=== PATIENT | female | born 1975 | race Caucasian/White ===

== ENCOUNTER 2020-04-01 11:29 | Emergency (ER) | payer MEDICAID ==
--- NOTE | 2020-04-01 12:38 | ER Document Report ---
ED Medical Screen (RME) - General Stated Complaint: ABDOMINAL PAIN Time Seen by Provider: 04/01/20 12:33 Primary Care Provider: PLACIDO CONTRERAS DO [Primary Care Provider] - Follow up as needed TRAVEL OUTSIDE OF THE [place] IN LAST 30 DAYS: No - HPI Notes: 04/01/20 12:38 44 yr old female presents to the emergency room tonight with right upper abdominal pain with nausea and vomiting after she ate greasy food at a burger restaurant a day ago. No [id number] medications have been tried, she does report that her anxiety has become progressively worse with having this upper abdominal pain. Reports last menstrual cycle was 03/04/2020. Last bowel movement was today, denies any vaginal bleeding or vaginal discharge. Patient has not had any abdominal surgeries I have greeted and performed a rapid initial assessment of this patient. A comprehensive ED assessment and evaluation of the patient, analysis of test results and completion of the medical decision making process will be conducted by additional ED providers. PHYSICAL EXAMINATION: GENERAL: Well-appearing, well-nourished and in no acute distress. CV: s1, s2 regular LUNGS: No respiratory distress abd: RUQ, epigastric abd pain - Related Data Allergies/Adverse Reactions: ondansetron [From Zofran (as hydrochloride)] Allergy (Verified 04/01/20 12:20) promethazine HCl [From Phenergan] Allergy (Verified 04/01/20 12:20) Past Medical History Neurological Medical History: Reports: Hx Migraine Musculoskeltal Medical History: Reports Hx Arthritis, Reports Hx Musculoskeletal Trauma Psychiatric Medical History: Reports: Hx Anxiety, Hx Attention Deficit Hyperactivity Disorder, Hx Depression, Hx Post Traumatic Stress Disorder Past Surgical History: Reports: Hx Myringotomy, Hx Tubal Ligation - Immunizations Immunizations up to date: Yes Hx Diphtheria, Pertussis, Tetanus Vaccination: Yes Physical Exam - Vital signs Vitals: Temp Pulse Resp BP Pulse Ox 97.1 F 106 H 20 140/92 H 100 04/01/20 11:56 04/01/20 11:56 04/01/20 11:56 04/01/20 11:56 04/01/20 11:56 Course - Vital Signs Vital signs: Temp Pulse Resp BP Pulse Ox 97.1 F 106 H 20 140/92 H 100 04/01/20 11:56 04/01/20 11:56 04/01/20 11:56 04/01/20 11:56 04/01/20 11:56 Doctor's Discharge - Discharge Referrals: PLACIDO CONTRERAS DO [Primary Care Provider] - Follow up as needed
[2020-04-01 13:54] LABS: ABSOLUTE LYMPHOCYTES (AUTO) 1.7 10^3/uL (0.5-4.7); ABSOLUTE NEUT (AUTO) 4.9 10^3/uL (1.7-8.2); BASOPHILS % (AUTO) 0.7 % (0-2); EOSINOPHILS % (AUTO) 0.3 % (0-6); HEMATOCRIT 43.6 % (36.0-47.0); HEMOGLOBIN 14.7 g/dL (12.0-15.5); LYMPHOCYTES % (AUTO) 21.8 % (13-45); MEAN CORPUSCULAR HEMOGLOBIN 27.5 pg (27.0-33.4); MEAN CORPUSCULAR HGB CONC 33.7 g/dL (32.0-36.0); MEAN CORPUSCULAR VOLUME 82 fl (80-97); MONOCYTES % (AUTO) 13.3 % (3-13); PLATELET COUNT 535 10^3/uL (150-450); RED BLOOD COUNT 5.34 10^6/uL (3.72-5.28); RED CELL DISTRIBUTION WIDTH 15.2 % (11.5-14.0); SEGMENTED NEUTROPHILS % (AUTO) 63.9 % (42-78); TOTAL CELLS COUNTED % (AUTO) 100 %; WHITE BLOOD COUNT 7.6 10^3/uL (4.0-10.5)
[2020-04-01 14:03] LABS: AMORPHOUS SEDIMENT,URINE TRACE /HPF; APPEARANCE,URINE CLOUDY; BILIRUBIN,URINE NEGATIVE (NEGATIVE); GLUCOSE, URINE NEGATIVE (NEGATIVE); KETONES,URINE NEGATIVE (NEGATIVE); LEUKOCYTE ESTERASE,URINE NEGATIVE (NEGATIVE); NITRITE,URINE NEGATIVE (NEGATIVE); PROTEIN,URINE 100 mg/dL (NEGATIVE); URINE SPECIFIC GRAVITY 1.023
[2020-04-01 14:04] LABS: COLOR,URINE DARK YELLOW
[2020-04-01 14:15] LABS: ALBUMIN 4.7 g/dL (3.5-5.0); ALKALINE PHOSPHATASE 169 U/L (38-126); ANION GAP 12 (5-19); ASPARTATE AMINO TRANSFERASE 204 U/L (14-36); BILIRUBIN,DIRECT 0.2 mg/dL (0.0-0.4); BILIRUBIN,TOTAL 0.8 mg/dL (0.2-1.3); BLOOD UREA NITROGEN 10 mg/dL (7-20); CALCIUM 10.2 mg/dL (8.4-10.2); CARBON DIOXIDE 24 mmol/L (22-30); CHLORIDE 105 mmol/L (98-107); GLUCOSE 90 mg/dL (75-110); POTASSIUM 4.3 mmol/L (3.6-5.0); TOTAL PROTEIN 8.1 g/dL (6.3-8.2)
--- NOTE | 2020-04-01 16:28 | ER Document Report ---
ED General - General Chief Complaint: Upper Abdominal Pain Stated Complaint: ABDOMINAL PAIN Time Seen by Provider: 04/01/20 12:33 Primary Care Provider: PLACIDO CONTRERAS DO [NO LOCAL MD] - Follow up as needed Information source: Patient TRAVEL OUTSIDE OF THE [place] IN LAST 30 DAYS: No - HPI Notes: Patient comes in complaining of anxiety abdominal pain with nausea and vomiting. She states the pain was last night but that she does not currently have any pain. She states she still does feel very anxious. She states she is feeling very anxious due to some family issues as well as legal issues that she has her self. She states she is on probation and had a meeting with her property portfolio officer today but was unable to make it and was sent here to the emergency department. No recent fever sweats or chills. No exposure to Covid. Patient denies any previous abdominal surgeries other than a tubal ligation. No trouble with urination no vaginal symptoms. Patient states that she has a long history of illicit drug use and has been on Suboxone for approximately "7 years". She states that she has had withdrawal before and does not believe that this is withdrawal. - Related Data Allergies/Adverse Reactions: ondansetron [From Zofran (as hydrochloride)] Allergy (Verified 04/01/20 15:28) promethazine HCl [From Phenergan] Adverse Reaction (Intermediate, Verified 04/01/20 15:28) Past Medical History - General Information source: Patient - Social History Smoking Status: Current Every Day Smoker Chew tobacco use (# tins/day): No Frequency of alcohol use: None Drug Abuse: Methamphetamine Family History: Arthritis, Thyroid Disfunction Neurological Medical History: Reports: Hx Migraine Musculoskeletal Medical History: Reports Hx Arthritis, Reports Hx Musculoskeletal Trauma Psychiatric Medical History: Reports: Hx Anxiety, Hx Attention Deficit Hyperactivity Disorder, Hx Depression, Hx Post Traumatic Stress Disorder Past Surgical History: Reports: Hx Myringotomy, Hx Tubal Ligation - Immunizations Immunizations up to date: Yes Hx Diphtheria, Pertussis, Tetanus Vaccination: Yes Review of Systems - Review of Systems Constitutional: denies: Chills, Fever Cardiovascular: Palpitations. denies: Chest pain Respiratory: Short of breath. denies: Cough -: Yes All other systems reviewed and negative Physical Exam - Vital signs Vitals: Temp Pulse Resp BP Pulse Ox 97.1 F 106 H 20 140/92 H 100 04/01/20 11:56 04/01/20 11:56 04/01/20 11:56 04/01/20 11:56 04/01/20 11:56 Interpretation: Tachycardic - Patient is not tachycardic on my exam with a pulse of 86 - General General appearance: Appears well, Alert - HEENT Head: Normocephalic, Atraumatic Eyes: Normal Pupils: PERRL - Respiratory Respiratory status: No respiratory distress Chest status: Nontender Breath sounds: Normal Chest palpation: Normal - Cardiovascular Rhythm: Regular Heart sounds: Normal auscultation Murmur: No - Abdominal Inspection: Normal Distension: No distension Bowel sounds: Normal Tenderness: Nontender Organomegaly: No organomegaly - Back Back: Normal, Nontender - Extremities General upper extremity: Normal inspection, Nontender, Normal color, Normal ROM, Normal temperature General lower extremity: Normal inspection, Nontender, Normal color, Normal ROM, Normal temperature, Normal weight bearing. No: Kosta's sign - Neurological Neuro grossly intact: Yes Cognition: Normal Orientation: AAOx4 [place] Coma Scale Eye Opening: Spontaneous [place] Coma Scale Verbal: Oriented [place] Coma Scale Motor: Obeys Commands [place] Coma Scale Total: 15 Speech: Normal Motor strength normal: LUE, RUE, LLE, RLE Sensory: Normal - Psychological Associated symptoms: Agitated, Anxious - Skin Skin Temperature: Warm Skin Moisture: Dry Skin Color: Normal Course - Re-evaluation Re-evalutation: 04/01/20 16:25 Patient presents with anxiety-like symptoms. I do believe patient's presentation is most consistent with anxiety or a panic attack. She does have some nonspecific hepatitis but she has a negative gallbladder ultrasound and no elevated white blood cell count. Her nonspecific appetite is most likely due to her illicit drug use. I did educate her about this. I also told her that possibly she has some occult gallbladder or liver pathology that we are not able to detect and that if she has persistent problems with pain or vomiting she should return to a provider for reevaluation. I have a am going to refer the patient to a primary care clinic and recommend that she have her liver enzymes repeated in a week. She has no acute pathology that I feel needs addressed at this time. - Vital Signs Vital signs: Temp Pulse Resp BP Pulse Ox 97.1 F 86 20 138/83 H 100 04/01/20 11:56 04/01/20 15:33 04/01/20 15:33 04/01/20 15:33 04/01/20 15:33 - Laboratory Result Diagrams: 04/01/20 13:43 04/01/20 13:43 Laboratory results interpreted by me: 04/01/20 04/01/20 04/01/20 13:43 13:43 13:43 RBC 5.34 H RDW 15.2 H Plt Count 535 H [place] % (Auto) 13.3 H AST 204 H ALT 353 H Alkaline Phosphatase 169 H Urine Protein 100 H Urine Urobilinogen 4.0 H - Diagnostic Test Radiology reviewed: Image reviewed, Reports reviewed Discharge - Discharge Clinical Impression: Anxiety, Hepatitis Condition: Stable Disposition: HOME, SELF-CARE Instructions: Anxiety ([facility]) Additional Instructions: Please see your primary doctor as soon as possible and have your liver enzymes rechecked within one week. Prescriptions: Lorazepam [Ativan 0.5 mg Tablet] 0.5 mg PO BID 3 Days #6 tab Forms: Return to Work Referrals: PLACIDO CONTRERAS DO [NO LOCAL MD] - Follow up in 3-5 days [facility] [Provider Group] - Follow up in 3-5 days
[2020-04-01] MEDS ORDERED: LORAZEPAM 0.5 MG TABLET PO ONE (16:29)
[2020-04-01 16:56] VITALS: BP 127/91
--- NOTE | 2020-04-01 17:20 | RADIOLOGY REPORT (SQ) ---
EXAM DESCRIPTION: U/S ABDOMEN LIMITED W/O DOP IMAGES COMPLETED DATE/TIME: 04/01/2020 1:05 pm REASON FOR STUDY: RUQ, epigastric abd pain x 1 day COMPARISON: None. TECHNIQUE: Dynamic and static grayscale images acquired of the abdomen and recorded on PACS. Jennio betty selected color Doppler and spectral images recorded. LIMITATIONS: None. FINDINGS: PANCREAS: No masses. Visualized pancreatic duct normal caliber. LIVER: No masses. Echotexture normal. LIVER VASCULATURE: Normal directional flow of the main portal vein and hepatic veins. GALLBLADDER: No stones. Mildly contracted. No pericholecystic fluid. ULTRASOUND-DETECTED ORTEGA'S SIGN: Negative. INTRAHEPATIC DUCTS AND COMMON DUCT: CBD and intrahepatic ducts normal caliber. No filling defects. INFERIOR VENA CAVA: Normal flow. AORTA: No aneurysm. RIGHT KIDNEY: Normal size. Normal echogenicity. No solid or suspicious masses. No hydronephrosis. No calcifications. PERITONEAL AND RIGHT PLEURAL SPACE: No ascites or effusions. OTHER: No other significant findings. IMPRESSION: NORMAL RIGHT UPPER QUADRANT ULTRASOUND. TECHNICAL DOCUMENTATION: JOB ID: [id number] [employer] All Rights Reserved Reading location - IP/workstation name: [email or web address]
--- NOTE | 2020-04-01 17:29 | RADIOLOGY REPORT (SQ) ---
EXAM DESCRIPTION: CHEST SINGLE VIEW IMAGES COMPLETED DATE/TIME: 04/01/2020 1:26 pm REASON FOR STUDY: epigastric pain COMPARISON: None. EXAM PARAMETERS: NUMBER OF VIEWS: One view. TECHNIQUE: Single frontal radiographic view of the chest acquired. RADIATION DOSE: NA LIMITATIONS: None. FINDINGS: LUNGS AND PLEURA: No opacities, masses or pneumothorax. No pleural effusion. MEDIASTINUM AND HILAR STRUCTURES: No masses. Contour normal. HEART AND VASCULAR STRUCTURES: Heart normal in size. Normal vasculature. BONES: No acute findings. HARDWARE: None in the chest. OTHER: No other significant finding. IMPRESSION: NO ACUTE RADIOGRAPHIC FINDING IN THE CHEST. TECHNICAL DOCUMENTATION: JOB ID: [id number] 2010 [employer]- All Rights Reserved Reading location - IP/workstation name: [email or web address]
== END 2020-04-01 16:50 | disposition home or self-care (01) ==
LOC: ER 11:29
DX: K75.9 Inflammatory liver disease, unspecified (principal); F41.9 Anxiety disorder, unspecified; R10.13 Epigastric pain; R10.11 Right upper quadrant pain; R11.2 Nausea with vomiting, unspecified; F15.10 Other stimulant abuse, uncomplicated; R00.2 Palpitations; R06.02 Shortness of breath; Z65.3 Problems related to other legal circumstances; Z63.9 Problem related to primary support group, unspecified; Z79.899 Other long term (current) drug therapy; Z98.51 Tubal ligation status; Z88.8 Allergy status to other drugs, medicaments and biological substances
CPT/HCPCS: 36415; 71045; 76705; 80053; 81001; 81025; 83690; 85025; 99285